=== PATIENT | female | born 1970 | race Caucasian/White ===

== ENCOUNTER 2019-05-03 08:23 | Day surgery (SDC) | payer OTHER ==
[2019-05-03] MEDS ORDERED: LACTATED RINGERS 1,000 ML IV.SOLN IV ONE (08:48)
--- NOTE | 2019-05-05 12:21 | GI Report ---
DATE OF PROCEDURE: 05/03/2019 REFERRING PHYSICIAN: Dr. Mendoza. PROCEDURE PERFORMED: Colonoscopy with polypectomy. SURGEON: Adan Escobedo M.D., [place]. INDICATION FOR PROCEDURE: 48-year-old woman referred for screening. This is her first colonoscopy. She has had a . She sometimes has some loud gurgling sounds in her stomach. There has been no bleeding. She has never had a previous colonoscopy. She denies a family history of colorectal cancer. PROCEDURE MEDICATION: Propofol, as per Anesthesia. DESCRIPTION OF PROCEDURE: The Olympus video colonoscope was advanced through the rectum. 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 It took nurse compression to finally reach the base of the cecum. The terminal ileum looks normal. On slow withdrawal, the cecum, ascending colon, transverse colon no obvious intraluminal lesions noted. No significant redundancy. Descending colon and sigmoid: Again, no polyps or lesions noted until we got to 20 cm and there the patient has a 3-4 mm flat polyp removed with a cold snare. The remaining sigmoid, rectum on retroflexion were normal. The patient tolerated the procedure well. FINDINGS: 1. Sigmoid polyp, removed. 2. Atonic redundant colon. RECOMMENDATIONS: 1. Increase fiber in the diet, MiraLAX if needed. 2. Will most likely need a follow-up colonoscopy in 5 years pending the pathology results. ADAN ESCOBEDO M.D., F.A.C.P. Mi Job#: [id number] Cc: Dr. Mendoza. [email or web address]
== END 2019-05-03 10:04 | disposition home or self-care (01) ==
LOC: OPSURG 08:23
PROVIDERS: ATTEND Internal Medicine Gastroenterology
DX: K63.5 Polyp of colon (principal); K63.89 Other specified diseases of intestine
CPT/HCPCS: 45385; J7120